=== PATIENT | male | born 1990 | race Caucasian/White ===

== ENCOUNTER 2017-09-19 12:06 | Emergency (ER) | payer BC, OTHER ==
[2017-09-19] MEDS ORDERED: Sodium Chloride 0.9% 2.5 ML Syringe FLUSH PRN (12:11)
[2017-09-19] MEDS ORDERED: Sodium Chloride 0.9% 1,000 ML IV ONE (12:11)
[2017-09-19] MEDS ORDERED: Sodium Chloride 0.9% 10 ML Syringe FLUSH PRN (12:11)
--- NOTE | 2017-09-19 12:13 | EDM.PDOC ---
ED HPI GENERAL MEDICAL PROBLEM - General Chief Complaint: Trauma Stated Complaint: INJURY AT WORK Time Seen by Provider: 09/19/17 12:08 Source of Information: Reports: Patient History Limitations: Reports: No Limitations - History of Present Illness INITIAL COMMENTS - FREE TEXT/NARRATIVE: History of present illness: []Patient was at work when his right lower chest was pinned with a forklift against a wall for a few seconds. Patient ambulated into the ED are being driven by private vehicle to the emergency room. He complains of chest pain and abdominal pain. Review of systems: As per history of present illness and below otherwise all systems reviewed and negative. Past medical history: As per history of present illness and as reviewed below otherwise noncontributory. Surgical history: As per history of present illness and as reviewed below otherwise noncontributory. Social history: No reported history of drug or alcohol abuse. Family history: As per history of present illness and as reviewed below otherwise noncontributory. Physical exam: General: Well developed, well nourished in NAD HEENT: Atraumatic, normocephalic, pupils reactive, negative for conjunctival pallor or scleral icterus, mucous membranes moist, throat clear, neck supple, nontender, trachea midline. Lungs: Clear to auscultation, breath sounds equal bilaterally, chest nontender. Heart: S1S2, regular, negative for clicks, rubs, or JVD. Abdomen: Soft, nondistended, nontender. Negative for masses or hepatosplenomegaly. Negative for costovertebral tenderness. Pelvis: Stable nontender. Genitourinary: Deferred. Rectal: Deferred. Extremities: Atraumatic, negative for cords or calf pain. Neurovascular unremarkable. Neuro: Awake, alert, oriented. Cranial nerves II through XII unremarkable. Cerebellum unremarkable. Motor and sensory unremarkable throughout. Exam nonfocal. Diagnostics: []CT chest abdomen pelvis and labs Therapeutics: []Patient declined pain meds Impression: []Liver laceration Plan: []Transfer to [facility] accepts at 13:47 Definitive disposition and diagnosis as appropriate pending reevaluation and review of above. abdomen Pain Score (Numeric/FACES): 7 - Related Data Allergies Allergy/AdvReac Type Severity Reaction Status Date / Time No Known Allergies Allergy Verified 09/19/17 12:08 Home Meds: Home Meds . [No Known Home Meds] 09/19/17 [History] Review of Systems - Review of Systems Review Of Systems: See Below (See history of present illness) ED EXAM, GENERAL - Physical Exam Exam: See Below (See history of present illness) Course - Vital Signs Last Recorded V/S: Last Vital Signs Temp 97.6 F 09/19/17 12:09 Pulse 74 09/19/17 13:43 Resp 15 09/19/17 13:43 BP 133/67 09/19/17 13:43 Pulse Ox 100 09/19/17 13:43 - Orders/Labs/Meds Orders: Active Orders 24 hr Category Date Time Status Abdomen Pelvis w Cont [CT] Stat Exams 09/19/17 12:10 Taken Chest w Cont [CT] Stat Exams 09/19/17 12:10 Taken Sodium Chloride 0.9% [Saline Flush] Med 09/19/17 12:11 Active 10 ml FLUSH ASDIRECTED PRN Sodium Chloride 0.9% [Saline Flush] Med 09/19/17 12:11 Active 2.5 ml FLUSH ASDIRECTED PRN Saline Lock Insert [OM.PC] Stat Oth 09/19/17 12:10 Ordered Medication Orders Sodium Chloride (Saline Flush) 10 ml FLUSH ASDIRECTED PRN PRN Reason: Keep Vein Open Last Admin: 09/19/17 12:16 Dose: 10 ml Sodium Chloride (Saline Flush) 2.5 ml FLUSH ASDIRECTED PRN PRN Reason: Keep Vein Open Last Admin: 09/19/17 12:16 Dose: 2.5 ml Labs: Laboratory Tests 09/19/17 09/19/17 09/19/17 Range/Units 12:25 12:25 12:25 WBC 16.10 H (4.0-11.0) K/uL RBC 5.07 (4.50-5.90) M/uL Hgb 15.3 (13.0-17.0) g/dL Hct 43.9 (38.0-50.0) % MCV 86.6 (80.0-98.0) fL MCH 30.2 (27.0-32.0) pg MCHC 34.9 (31.0-37.0) g/dL RDW Std Deviation 38.3 (28.0-62.0) fl RDW Coeff of Giuseppe 12 (11.0-15.0) % Plt Count 341 (150-400) K/uL MPV 9.30 (7.40-12.00) fL Neut % (Auto) 84.7 H (48.0-80.0) % Lymph % (Auto) 9.6 L (16.0-40.0) % [place] % (Auto) 4.8 (0.0-15.0) % Eos % (Auto) 0.8 (0.0-7.0) % Baso % (Auto) 0.1 (0.0-1.5) % Neut # (Auto) 13.6 H (1.4-5.7) K/uL Lymph # (Auto) 1.5 (0.6-2.4) K/uL [place] # (Auto) 0.8 (0.0-0.8) K/uL Eos # (Auto) 0.1 (0.0-0.7) K/uL Baso # (Auto) 0.0 (0.0-0.1) K/uL Nucleated RBC % 0.0 /100WBC Nucleated RBCs # 0 K/uL Sodium 139 (136-146) mmol/L Potassium 4.1 (3.5-5.1) mmol/L Chloride 107 (98-110) mmol/L Carbon Dioxide 23 (21-31) mmol/L BUN 8 (6.0-23.0) mg/dL Creatinine 0.8 (0.6-1.5) mg/dL Est Cr Clr Drug Dosing 137.75 mL/min Estimated GFR (MDRD) > 60.0 ml/min Glucose 101 (60-110) mg/dL Calcium 9.1 (8.8-10.8) mg/dL Total Bilirubin 1.6 H (0.1-1.5) mg/dL AST 157 H (5-40) IU/L ALT 208 H (8-54) IU/L Alkaline Phosphatase 55 (40-150) Total Protein 7.0 (6.0-8.0) g/dL Albumin 4.2 (3.5-5.0) g/dL Globulin 2.8 (2.0-3.5) g/dL Albumin/Globulin Ratio 1.5 (1.3-2.8) Lipase 11 (7-80) U/L Blood Type A POSITIVE Antibody Screen NEGATIVE Meds: Medications Generic Name Dose Route Start Last Admin Trade Name Adela PRN Reason Stop Dose Admin Sodium Chloride 10 ml 09/19/17 12:11 09/19/17 12:16 Saline Flush FLUSH 10 ml ASDIRECTED PRN Administration Keep Vein Open Sodium Chloride 2.5 ml 09/19/17 12:11 09/19/17 12:16 Saline Flush FLUSH 2.5 ml ASDIRECTED PRN Administration Keep Vein Open Discontinued Medications Generic Name Dose Route Start Last Admin Trade Name Adela PRN Reason Stop Dose Admin Sodium Chloride 1,000 mls @ 999 mls/hr 09/19/17 12:11 09/19/17 12:15 Normal Saline IV 09/19/17 13:11 999 mls/hr .Bolus ONE Administration Iopamidol 85 ml 09/19/17 13:24 09/19/17 13:26 Isovue-370 (76%) IVPUSH 09/19/17 13:25 85 ml ONETIME STA Administration Departure - Departure Time of Disposition: 13:50 Disposition: DC/Tfer to Acute Hospital 02 Condition: Good Clinical Impression: Liver laceration, grade II, with open wound into cavity - Discharge Information Forms: ED Department Discharge - My Orders Last 24 Hours: My Active Orders 09/19/17 12:10 Abdomen Pelvis w Cont [CT] Stat Chest w Cont [CT] Stat Saline Lock Insert [OM.PC] Stat 09/19/17 12:11 Sodium Chloride 0.9% [Saline Flush] 10 ml FLUSH ASDIRECTED PRN Sodium Chloride 0.9% [Saline Flush] 2.5 ml FLUSH ASDIRECTED PRN - Assessment/Plan Last 24 Hours: My Active Orders 09/19/17 12:10 Abdomen Pelvis w Cont [CT] Stat Chest w Cont [CT] Stat Saline Lock Insert [OM.PC] Stat 09/19/17 12:11 Sodium Chloride 0.9% [Saline Flush] 10 ml FLUSH ASDIRECTED PRN Sodium Chloride 0.9% [Saline Flush] 2.5 ml FLUSH ASDIRECTED PRN
[2017-09-19 12:51] LABS: CHLORIDE,CL 107 mmol/L (98-110); SODIUM,NA 139 mmol/L (136-146)
[2017-09-19] MEDS ORDERED: Iopamidol 755 Mg/ML 100 ML Bottle IVPUSH STA (13:24)
--- NOTE | 2017-09-19 14:12 | PCM.CONS ---
H&P History of Present Illness - General Date of Service: 09/19/17 Admit Problem/Dx: Blunt trauma to the abdomen. Liver laceration with hemoperitoneum. 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 He states he was pinned for perhaps 1 second to 2 seconds. He was brought in by a coworker. Onset of Symptoms: Reports: Today Duration of Symptoms: Reports: Hour(s): Location: Reports: Abdomen Quality: Reports: Ache, Pressure Severity: Mild Improves with: Reports: Rest Worsens with: Reports: Movement Context: Reports: Trauma Associated Symptoms: Reports: No Other Symptoms abdomen Pain Score (Numeric/FACES): 7 - Related Data Allergies/Adverse Reactions: Allergies Allergy/AdvReac Type Severity Reaction Status Date / Time No Known Allergies Allergy Verified 09/19/17 12:08 Home Medications: Home Meds . [No Known Home Meds] 09/19/17 [History] Past Medical History - Past Surgical History HEENT Surgical History: Reports: Naso-Sinus Surgery, Other (See Below) Social & Family History - Family History Family Medical History: Noncontributory - Tobacco Use Smoking Status *Q: Heavy Tobacco Smoker Years of Tobacco use: 12 Packs/Tins Daily: 1 - Recreational Drug Use Recreational Drug Use: No H&P Review of Systems - Review of Systems: Review Of Systems: See Below General: Denies: Fever, Chills, Malaise, Weakness, Fatigue HEENT: Reports: No Symptoms Pulmonary: Reports: No Symptoms Cardiovascular: Reports: No Symptoms Gastrointestinal: Reports: Abdominal Pain. Denies: Anorexia, Black Stool, Bloody Stool, Constipation, Diarrhea, Decreased Appetite, Hematemesis, Hematochezia, Nausea, Vomiting Genitourinary: Reports: No Symptoms Musculoskeletal: Reports: No Symptoms Skin: Reports: No Symptoms Psychiatric: Reports: No Symptoms Neurological: Reports: No Symptoms Hematologic/Lymphatic: Reports: No Symptoms Immunologic: Reports: No Symptoms Exam - Exam Exam: See Below - Vital Signs Vital Signs: Last Vital Signs Temp 97.6 F 09/19/17 12:09 Pulse 74 09/19/17 13:43 Resp 15 09/19/17 13:43 BP 133/67 09/19/17 13:43 Pulse Ox 100 09/19/17 13:43 Weight: 175 lb - Exam Quality Assessment: Supplemental Oxygen General: Alert, Oriented, Cooperative, Mild Distress HEENT: Conjunctiva Clear, Nares Patent, Pupils Equal, Pupils Reactive. No: Scleral Icterus Neck: Supple, Trachea Midline Lungs: Clear to Auscultation, Normal Respiratory Effort Cardiovascular: Regular Rate, Regular Rhythm. No: Tachycardia GI/Abdominal Exam: Normal Bowel Sounds, Soft, No Distention, No Mass, Pelvis Stable, Tender. No: Guarding, Rigid, Rebound (Male) Exam: No Hernia, Normal Inspection Rectal (Males) Exam: Deferred Back Exam: Normal Inspection Extremities: Normal Inspection Peripheral Pulses: 4+: Posterior Tibial (L), Posterior Tibial (R), Dorsalis Pedis (L), Dorsalis Pedis (R) Skin: Warm, Dry, Intact Neurological: Cranial Nerves Intact Neuro Extensive - Mental Status: Alert, Oriented x3, Normal Mood/Affect, Normal Cognition Psychiatric: Alert, Normal Affect, Normal Mood - Patient Data Lab Results Last 24 hrs: Laboratory Results - last 24 hr 09/19/17 09/19/17 09/19/17 Range/Units 12:25 12:25 12:25 WBC 16.10 H (4.0-11.0) K/uL RBC 5.07 (4.50-5.90) M/uL Hgb 15.3 (13.0-17.0) g/dL Hct 43.9 (38.0-50.0) % MCV 86.6 (80.0-98.0) fL MCH 30.2 (27.0-32.0) pg MCHC 34.9 (31.0-37.0) g/dL RDW Std Deviation 38.3 (28.0-62.0) fl RDW Coeff of Giuseppe 12 (11.0-15.0) % Plt Count 341 (150-400) K/uL MPV 9.30 (7.40-12.00) fL Neut % (Auto) 84.7 H (48.0-80.0) % Lymph % (Auto) 9.6 L (16.0-40.0) % [place] % (Auto) 4.8 (0.0-15.0) % Eos % (Auto) 0.8 (0.0-7.0) % Baso % (Auto) 0.1 (0.0-1.5) % Neut # (Auto) 13.6 H (1.4-5.7) K/uL Lymph # (Auto) 1.5 (0.6-2.4) K/uL [place] # (Auto) 0.8 (0.0-0.8) K/uL Eos # (Auto) 0.1 (0.0-0.7) K/uL Baso # (Auto) 0.0 (0.0-0.1) K/uL Nucleated RBC % 0.0 /100WBC Nucleated RBCs # 0 K/uL Sodium 139 (136-146) mmol/L Potassium 4.1 (3.5-5.1) mmol/L Chloride 107 (98-110) mmol/L Carbon Dioxide 23 (21-31) mmol/L BUN 8 (6.0-23.0) mg/dL Creatinine 0.8 (0.6-1.5) mg/dL Est Cr Clr Drug Dosing 137.75 mL/min Estimated GFR (MDRD) > 60.0 ml/min Glucose 101 (60-110) mg/dL Calcium 9.1 (8.8-10.8) mg/dL Total Bilirubin 1.6 H (0.1-1.5) mg/dL AST 157 H (5-40) IU/L ALT 208 H (8-54) IU/L Alkaline Phosphatase 55 (40-150) Total Protein 7.0 (6.0-8.0) g/dL Albumin 4.2 (3.5-5.0) g/dL Globulin 2.8 (2.0-3.5) g/dL Albumin/Globulin Ratio 1.5 (1.3-2.8) Lipase 11 (7-80) U/L Blood Type A POSITIVE Antibody Screen NEGATIVE Result Diagrams: 09/19/17 12:25 09/19/17 12:25 Imaging Impressions Last 24 hrs: CT scan has been personally reviewed, along with review of the written report. The CT scan does demonstrate a liver laceration as well as a hemoperitoneum with a 7 cm x 7 cm collection of fluid in the pelvis. Presumably this is blood. Consult PN Assessment/Plan (1) Blunt abdominal trauma SNOMED Code(s): 303868048 Code(s): S39.81XA - OTHER SPECIFIED INJURIES OF ABDOMEN, INITIAL ENCOUNTER Priority: High Current Visit: Yes Qualifiers: Encounter type: initial encounter Qualified Code(s): S39.81XA - Other specified injuries of abdomen, initial encounter (2) Liver laceration, grade II, without open wound into cavity SNOMED Code(s): 914675395 Code(s): S36.114A - MINOR LACERATION OF LIVER, INITIAL ENCOUNTER Priority: High Current Visit: Yes Qualifiers: Encounter type: initial encounter Qualified Code(s): S36.114A - Minor laceration of liver, initial encounter (3) Traumatic hemoperitoneum SNOMED Code(s): 03619818 Code(s): S36.899A - UNSP INJURY OF OTHER INTRA-ABDOMINAL ORGANS, INIT ENCNTR Priority: High Current Visit: Yes Qualifiers: Encounter type: initial encounter Qualified Code(s): S36.899A - Unspecified injury of other intra-abdominal organs, initial encounter Problem List Initiated/Reviewed/Updated: Yes Plan: Given the mechanism of injury and the fact that he already has a small to moderate sized pelvic hemoperitoneum, I think transfer to a larger facility with a more robust blood bank is indicated. I have explained this carefully to the patient and discussed this with Dr. Mendoza. She has been able to arrange transfer to [facility] in [place]. At this point, I don't think there is any reason to expect a sudden deterioration and the patient. I suspect that if he remains stable over the next 24-72 hours that he may well be discharged from the hospital. I will let the physicians in [place] determine his return to work.
--- NOTE | 2017-09-20 19:45 | CT ---
EXAM DATE: 09/19/17 PATIENT'S AGE: 26 Patient: STEFANIA JANE Facility: [place], [place] Site . Site : 1990 Study: CT Chest [id number] 1:00:50 PM Ordering Physician: Reji Thomas Final Report: INDICATION: Chest and abdominal pain. Pinned by forklift against wall. Technique: CT chest, abdomen, and pelvis performed after IV injection of 1 of the 370. Findings: Moderate gynecomastia. No posttraumatic abnormalities in the chest. 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 Ill-defined linearly oriented focus of low density in the left hepatic lobe at the level of the mid liver covering a 5-6 cm in length and measuring 1.1 cm in transverse diameter. Increased arterial enhancement which is vague about this site of the liver on arterial phase imaging. The findings are consistent with an acute liver laceration. Small amounts of hemoperitoneum in the abdomen bilaterally along the liver and spleen and on the right tracking along the right pericolic gutter into the pelvis. Moderate amount of hemoperitoneum in the pelvis. Hounsfield density measurements of the fluid in the pelvis range up to approximately 31-44 typical of hemoperitoneum. It is presumed that this hemoperitoneum is related to the liver laceration. Dense abnormal soft tissue along the left lateral aspect of the stomach. Stomach wall is somewhat thickened. I suspect this is related to the liver laceration or it could be related to a injury to a small vein or vascular structure about the stomach. The stomach wall is somewhat thickened however there is no free air. Some of the hemorrhage extends posteriorly to abut the anterior aspect of the pancreas. I cannot identify any discrete rib fractures. Remainder negative. Findings were called to referring physician. Impression: 1. Moderate-sized acute liver laceration with small to intermediate amounts of hemoperitoneum throughout the abdomen and pelvis with more focal acute hematoma along the stomach which is thick-walled. I suspect the hemoperitoneum is largely or may be completely related to liver laceration however there could be additional injury to small vascular structures accounting for the hematoma along the stomach. No discrete rib fractures. 2. No acute pathology in the chest. Other findings as above. Please note that all CT scans at this facility use dose modulation, iterative reconstruction, and/or weight-based dosing when appropriate to reduce radiation dose to as low as reasonably achievable. Dictated by Daren Shankar MD @ Sep 19 2017 1:28PM (Electronic Signature) Report Signed by Proxy. MTDD
--- NOTE | 2017-09-20 19:46 | CT ---
EXAM DATE: 09/19/17 PATIENT'S AGE: 26 Patient: STEFANIA JANE Facility: [place], [place] Site . Site : 1990 Study: CT Abdomen/Pelvis [id number] 1:01:51 PM Ordering Physician: Reji Thomas Final Report: INDICATION: Chest and abdominal pain. Pinned by forklift against wall. Technique: CT chest, abdomen, and pelvis performed after IV injection of 1 of the 370. Findings: Moderate gynecomastia. No posttraumatic abnormalities in the chest. 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 Ill-defined linearly oriented focus of low density in the left hepatic lobe at the level of the mid liver covering a 5-6 cm in length and measuring 1.1 cm in transverse diameter. Increased arterial enhancement which is vague about this site of the liver on arterial phase imaging. The findings are consistent with an acute liver laceration. Small amounts of hemoperitoneum in the abdomen bilaterally along the liver and spleen and on the right tracking along the right pericolic gutter into the pelvis. Moderate amount of hemoperitoneum in the pelvis. Hounsfield density measurements of the fluid in the pelvis range up to approximately 31-44 typical of hemoperitoneum. It is presumed that this hemoperitoneum is related to the liver laceration. Dense abnormal soft tissue along the left lateral aspect of the stomach. Stomach wall is somewhat thickened. I suspect this is related to the liver laceration or it could be related to a injury to a small vein or vascular structure about the stomach. The stomach wall is somewhat thickened however there is no free air. Some of the hemorrhage extends posteriorly to abut the anterior aspect of the pancreas. I cannot identify any discrete rib fractures. Remainder negative. Findings were called to referring physician. Impression: 1. Moderate-sized acute liver laceration with small to intermediate amounts of hemoperitoneum throughout the abdomen and pelvis with more focal acute hematoma along the stomach which is thick-walled. I suspect the hemoperitoneum is largely or may be completely related to liver laceration however there could be additional injury to small vascular structures accounting for the hematoma along the stomach. No discrete rib fractures. 2. No acute pathology in the chest. Other findings as above. Please note that all CT scans at this facility use dose modulation, iterative reconstruction, and/or weight-based dosing when appropriate to reduce radiation dose to as low as reasonably achievable. Dictated by Daren Shankar MD @ Sep 19 2017 1:36PM (Electronic Signature) Report Signed by Proxy. MTDD
== END 2017-09-19 14:15 ==
LOC: EDBD 12:06 → MW.ED 12:06
DX: S36.115A Moderate laceration of liver, initial encounter (principal); W23.1XXA Caught, crushed, jammed, or pinched between stationary objects, initial encounter; Y99.0 Civilian activity done for income or pay
CPT/HCPCS: 36415; 71260; 74177; 80053; 81001; 83690; 85025; 86850; 86900; 86901; 93005; 96360; 99285; J7040; Q9967; 99284